=== PATIENT | male | born 1960 | race Caucasian/White ===

== ENCOUNTER 2020-01-13 12:34 | Day surgery (SDC) | payer BC, OTHER ==
[2020-01-07 13:23] LABS: PROTIME 10.1 Seconds (9.3-11.4)
[~2020-01-13] VITALS: Ht 170.2 cm; Wt 89.5 kg
--- NOTE | ~2020-01-13 | O ---
[facility] [place] [address] OPERATIVE REPORT Name: SABRINA PATTERSON Room #: 440-P [facility] M.R.#: [id number] Admission: 01/13/20 Attend Phys: Baljit Fox MD Discharge: Date of : 58 Report #: [id number] THIS REPORT FOR: cc: Chidi Saleh MD, Herbert M. MD Abraham,Baljit Rahman MD ~ CC: Chidi Fox DATE OF SERVICE: 01/13/2020 PREOPERATIVE DIAGNOSIS: Left knee valgus osteoarthritis. POSTOPERATIVE DIAGNOSIS: Left knee valgus osteoarthritis. PROCEDURE: Left total knee arthroplasty using Navio robotic assistance. SURGEON: Baljit Fox MD VICTIMS ADVOCATE CLERK/SPECIALIST: Gaby Marie PA-C INDICATIONS FOR VICTIMS ADVOCATE CLERK/SPECIALIST: Throughout the case, extensive retraction and manipulation of the knee was required. This was afforded to me by my programs assistant. ANESTHESIA: LMA with an adductor canal block. IMPLANTS: Amezcua and Nephew size 6 Journey II BCS Oxinium femur, size 5 tibia, size 11 constrained polyethylene and size 35 patella. TOURNIQUET TIME: 66 minutes. ESTIMATED BLOOD LOSS: 25 mL. COMPLICATIONS: None. SPECIMENS: None. CONDITION UPON LEAVING THE OPERATING ROOM: Stable. INDICATIONS FOR PROCEDURE: The patient is a 59-year-old gentleman with severe left knee valgus osteoarthritis. He failed conservative measures for this and after discussion with him, he elected for left total knee arthroplasty. DESCRIPTION OF PROCEDURE: Risks, benefits, alternatives and complications were discussed in detail with the patient including but not limited to risk of anesthesia, risk of damage to nerves, arteries, blood vessels, risk for [facility] [address] [place] [address] OPERATIVE REPORT Name: SABRINA PATTERSON Room #: 440-P [facility] M.R.#: [id number] Admission: 01/13/20 Attend Phys: Baljit Fox MD Discharge: Date of : 58 Report #: [id number] infection, bleeding, risk for continued knee pain, need for reoperation. Informed consent was obtained from the patient. Left knee was appropriately marked in the preoperative holding area. IV Ancef was given for preoperative antibiotics. Adductor canal block was placed by anesthesia. He was brought to the operating room and placed in supine position on operating room table. LMA anesthesia was induced without complication. Tourniquet was placed on the left thigh. Left lower extremity was prepped and draped in normal sterile fashion. Timeout was performed properly identifying the patient and procedure as well as the instrumentation. All in the operating room were in agreement. Left lower extremity was exsanguinated, tourniquet was inflated. Tourniquet time was 66 minutes. Standard midline approach to the knee was made with 10 blade through the skin. Dissection was taken down sharply to the fascia and deep flaps were developed medially and laterally. Fresh 10 blade was used to make a medial parapatellar arthrotomy and the knee was inspected. There was severe lateral compartment osteoarthritis with complete loss of articular cartilage on the lateral femoral condyle and tibial plateau. In addition, there was moderate patellofemoral involvement. It was decided to proceed with total knee arthroplasty. ACL and PCL were removed sharply. Reference pins were placed in the femur and the tibia and the knee was then digitally mapped using the [employer] robotic system. Intraoperative plan was made and we sized the size 6 femur and a size 5 tibia with a size 10 spacer. After acceptance of the intraoperative plan, the distal femoral cut was made with a Navio bur. Distal femoral cutting block was pinned in place and the chamfer cuts were made. Attention was then turned to the tibia. Remainder of the menisci removed with Bovie cautery. Tibial resection guide was pinned in place using the Navio for placement and tibial resection was made. After this, flexion and extension gaps were checked and found to have good balance in flexion and extension medially. There was slight laxity laterally and it was felt we could make up for this with a constrained implant. After this, the tibia was sized, found to be a size 5. A size 5 tibial trial was placed, pinned and punched. A size 6 femoral trial was placed and the box cut was made. This was then trialed with a size 10 and then a size 11 polyethylene. The knee was taken through range of motion and found to have the best fit with the 11 polyethylene with a millimeter laxity medially 3 mm laterally and it was felt we could make up for this with a constrained polyethylene. A 9 mm was resected from the posterior surface of the patella and a size 35 patellar trial button was placed. Knee was taken through range of motion, found to be stable, found to have good patellar tracking. Trial components were removed. Bony ends were thoroughly irrigated with normal saline. Final size 5 tibia, size 6 Journey II BCS Oxinium femur and a size 35 patella were cemented in place using standard cementation techniques. While the cement cured, a periarticular injection consisting of morphine, ropivacaine, epinephrine and Toradol was placed around the knee joint capsule. After the cement cured, the tourniquet was deflated. Hemostasis was obtained with Bovie cautery. Final size 11 constrained polyethylene was placed. A gram of vancomycin was placed deep in the joint. Fascia was closed with 0 Vicryl, skin was closed with 2-0 Vicryl, 3-0 Monocryl. Dermabond and a CLAIRE dressing was [facility] [address] [place] [address] OPERATIVE REPORT Name: SABRINA PATTERSON Room #: 440-P [facility] M.R.#: [id number] Admission: 01/13/20 Attend Phys: Baljit Fox MD Discharge: Date of : 58 Report #: [id number] applied. The patient tolerated this procedure well and went to the recovery room under care of anesthesia postoperatively. By: [id number] Baljit Fox MD /nt
[~2020-01-13 12:34] MED LIST: ADULT LOW DOSE81 MG PO; ALEVE220 M1 PO; CENTRUM SILVER1 EAC5 PO; LIPITOR80 MG PO; LISINOPRIL-HCT1 EAC1 PO; OMEPRAZOLE40 MG PO; SERTRALINE HCL100 MG PO; TENORMIN50 MG PO; XANAX 0.5 MG0.5 M1 PO; ZETIA10 MG PO
[2020-01-13 13:29] VITALS: BP 152/85
[2020-01-13 17:22] VITALS: BP 124/88
[2020-01-13 19:41] VITALS: BP 124/79
--- NOTE | 2020-01-13 19:51 | NUR ---
PATIENT ARRIVED AT 1722 ALERT XS 4 AT BEDSIDE. HEIGHT= 5'7" WEIGHT = 190 V.S 97.7 20 61 124/88 O2 SAT 97% RA. FLUIDS INFUSING ORDERED. PT REGULAR DIET. HAS PICCO DRESSING TO LEFT KNEE. HAS SCD'S. AND JESUS MANUEL ARNDT. PT GIVEN PRN PAIN MEDS. PT PLEASANT AND COOPERATIVE WITH CARE.
--- NOTE | 2020-01-13 19:58 | NUR ---
PT ARRIVED AT 1141 ACCOMPAINED BY . HEIGHT 5'11" WEIGHT = 250 LBS. V.S. 97.4 20 110 117/72 O2 SAT 95% 2L/NC. PT GIVEN PRN PAIN MEDS IV FLUIDS INFUSING ORDERED. PT GIVE REGULAR DIET. HAS SCD'S, AND 4 BANDAIDS OVER 4 LAPROSCOPIC SITES. PT AMBULATING THE HALLS AROUND THE UNIT. STEADY GAIT. CONT OF B&B.
--- NOTE | 2020-01-14 03:48 | NUR ---
POST OP L KNEE. CLAIRE DRSG INTACT, POLAR EKATERINA IN PLACE. PT BEEN UP TO THE BATHROOM USING ROLLER WALKER.VOIDING OKAY. PAIN MANAGED BY ORAL PAIN MEDS. VSS.IVF AND IV ABTS GIVEN. PROGRESSING TOWARDS CARE GOALS.
[2020-01-14 04:14] VITALS: BP 99/59
[2020-01-14 06:01] LABS: HEMATOCRIT 33.4 % (42.0-52.0); HEMOGLOBIN 11.2 gm/dL (14.0-18.0); MCH 30.8 pg (26.0-34.0); MCHC 33.6 g/dL (28.0-37.0); MCV 91.7 fL (80.0-100.0); RBC 3.65 mil/uL (4.50-6.00); RDW 13.1 % (10.5-14.5); WBC 7.8 thou/uL (4.0-11.0)
[2020-01-14 07:46] VITALS: BP 97/63
[2020-01-14 13:44] VITALS: BP 97/63
--- NOTE | 2020-01-14 14:04 | NUR ---
PT ADMITTED RELATED TO LEFT TKR. CM REVIEWED CHART AND SPOKE WITH CARE TEAM. CM MET WITH PT AT BEDSIDE THIS DAY. PT IS A&O X4. CM ROLE INTRODUCED. PT INDICATED HE LIVES IN A HOUSE WITH HIS SPOUSE WITH 3 STEPS TO ENTER AND 10-15 STEPS INSIDE. PT INDICATED HE HAD BEEN INDEPENDENT WITH GAIT AND ADLS HUMAN RESOURCES TECHNICIAN. PT INDICATED HE NEEDS A FWW FOR HOME USE. IT'S TO BE DELIVERED BY [facility]. PT INDICATED HE HAS FOLLOW UP APPOINTMENT WITH [facility] NEXT WED BUT WASN'T SURE ABOUT HH OR OP PT UPON DC. CM TO FOLLOW INDICATED WITH DC PLANNING.
--- NOTE | 2020-01-14 19:56 | NUR ---
DC ORDERS RECEIVED. IV REMOVED FROML HAND. DC INSTRUCTIONS REVEIEWED WITH PT, ALREADY HAD SCRIPTS PRIOR. VOLUNTEER ESCORTED PT BY WC TO MAIN ENTRANCE.
== END 2020-01-14 16:36 | disposition home or self-care (01) ==
LOC: OR 12:34 → 4S 17:30 → OR 23:14 → ENTRNSPT 01-14 15:40 → EDTRNSPTSTS 01-14 15:43 → OR 01-14 16:36
PROVIDERS: Orthopaedic Surgery
DX: M17.12 Unilateral primary osteoarthritis, left knee (principal); M25.562 Pain in left knee; I10 Essential (primary) hypertension; F41.9 Anxiety disorder, unspecified; E78.5 Hyperlipidemia, unspecified; K21.9 Gastro-esophageal reflux disease without esophagitis; Z87.19 Personal history of other diseases of the digestive system; Z98.890 Other specified postprocedural states; Z79.899 Other long term (current) drug therapy; Z79.82 Long term (current) use of aspirin
CPT/HCPCS: 10102; 50010; 50101; 50415; 50954; 51130; 51225; 51320; 52001; 52282; 53000; 53078; 54118; 56527; 56528; 57095; 57103; 57110; 57127; 57180; 64042; 70005

== ENCOUNTER → 2020-09-14 | Outpatient (CLI) | payer BC, OTHER ==
[~2020-09-14] MED LIST changes: +NORVASC5 MG PO
== END ==
LOC: LAB 14:08
PROVIDERS: ATTEND Orthopaedic Surgery
DX: Z01.812 Encounter for preprocedural laboratory examination (principal); Z20.828 Contact with and (suspected) exposure to other viral communicable diseases

== ENCOUNTER 2020-09-19 07:34 | Inpatient (IN) | payer BC, OTHER ==
[2020-09-14 09:25] LABS: URINE BILIRUBIN NEGATIVE (Negative); URINE BLOOD NEGATIVE (Negative); URINE CLARITY CLEAR; URINE COLOR YELLOW; URINE GLUCOSE-RANDOM* NEGATIVE (Negative); URINE KETONES NEGATIVE (Negative); URINE LEUKOCYTES-REFLEX NEGATIVE (Negative); URINE NITRITE-REFLEX NEGATIVE (Negative); URINE PROTEIN (DIPSTICK) NEGATIVE (Negative); URINE SPECIFIC GRAVITY >= 1.030 (1.005-1.035); URINE UROBILINOGEN 0.2 E.U./dl (0.2-1.0)
[2020-09-14 09:28] LABS: HEMATOCRIT 39.8 % (42.0-52.0); HEMOGLOBIN 13.1 gm/dL (14.0-18.0); MCH 30.6 pg (26.0-34.0); MCHC 32.9 g/dL (28.0-37.0); MCV 92.8 fL (80.0-100.0); RBC 4.29 mil/uL (4.50-6.00); RDW 13.3 % (10.5-14.5); WBC 4.1 thou/uL (4.0-11.0)
[2020-09-14 09:38] LABS: ALBUMIN 4.1 g/dL (3.4-5.0); CALCIUM 8.8 mg/dL (8.5-10.1); POTASSIUM 4.2 mmol/L (3.5-5.1)
[~2020-09-19] VITALS: Ht 170.2 cm; Wt 88.9 kg
--- NOTE | ~2020-09-19 | O ---
[facility] [place] [address] [address] OPERATIVE REPORT Name: SABRINA PATTERSON Room #: 439-P [facility] M.R.#: [id number] Admission: 09/19/20 Attend Phys: Baljit Fox MD Discharge: 09/19/20 Date of : 58 Report #: [id number] THIS REPORT FOR: cc: Chidi Saleh MD, Herbert M. MD Abraham,Baljit Rahman MD ~ CC: Chidi Fox DATE OF SERVICE: 09/19/2020 PREOPERATIVE DIAGNOSIS: Right knee osteoarthritis. POSTOPERATIVE DIAGNOSIS: Right knee osteoarthritis. PROCEDURE: Right total knee arthroplasty using Navio robotic assistance. SURGEON: Baljit Fox MD NETWORK ANNOUNCER: Gaby Marie PA-C INDICATIONS FOR NETWORK ANNOUNCER: Throughout the case, extensive retraction and manipulation of the knee was required. This was afforded to me by my assistant professor of biology. ANESTHESIA: LMA with an adductor canal block. IMPLANTS: Amezcua and Nephew size 6 Journey II BCS Oxinium femur, size 5 tibia, size 9 polyethylene and size 35 patella. TOURNIQUET TIME: 52 minutes. ESTIMATED BLOOD LOSS: 25 mL. COMPLICATIONS: None. SPECIMENS: None. CONDITION UPON LEAVING THE OPERATING ROOM: Stable. INDICATIONS FOR PROCEDURE: The patient is a 60-year-old gentleman who has right knee osteoarthritis, who failed conservative measures for this and after discussion with him, he elected for right total knee arthroplasty. DESCRIPTION OF PROCEDURE: Risks, benefits, alternatives, and complications were discussed in detail with the patient including but not limited to risk of anesthesia, risk of damage to nerves, arteries, blood vessels, risk for [facility] [address] [place] [address] OPERATIVE REPORT Name: SABRINA PATTERSON Room #: 439-P [facility] M.R.#: [id number] Admission: 09/19/20 Attend Phys: Baljit Fox MD Discharge: 09/19/20 Date of : 58 Report #: [id number] infection, bleeding, risk for continued knee pain, need for reoperation. Informed consent was obtained from the patient. Right knee was appropriately marked in the preoperative holding area. IV Ancef was given for preoperative antibiotics. He was brought to the operating room and placed in supine position on the operating room table. LMA anesthesia was induced without complication. Tourniquet was placed on the right thigh. Right lower extremity was prepped and draped in normal sterile fashion. Timeout was performed properly identifying the patient and procedure as well as the implants. All in the operating room were in agreement. Right lower extremity was exsanguinated, tourniquet was inflated. Tourniquet time was 52 minutes. Standard midline approach to the knee was made with 10 blade through the skin. Dissection was taken down sharply to the fascia and deep flaps were developed medially and laterally. Fresh 10 blade was used to make a medial parapatellar arthrotomy and the knee was inspected. There was severe tricompartmental osteoarthritis. ACL and PCL were removed sharply. Reference pins were placed in the femur and the tibia. The knee was then digitally mapped using the [employer] robotic system. Intraoperative plan was made and we sized the size 6 femur with a size 5 tibia and a 10 spacer. After acceptance of the plan, the distal femoral cut was made with a Navio bur. Distal femoral cutting block was pinned in place and chamfer cuts were made. Attention was turned to the tibia. Tibial resection guide was pinned in place using the Navio for placement and tibial resection was made. Flexion and extension gaps were then checked and found to have good balance in flexion and extension. Tibia was then sized, found to be a size 5. A size 5 tibial trial was placed, pinned and punched. Size 6 femoral trial was placed and the box cut was made. This was then trialed with a size 9 polyethylene. Size 9 polyethylene demonstrated 1 mm laxity medially and laterally throughout range of motion of the knee. A 9 mm was resected from the posterior surface of the patella and a size 35 patellar trial button was placed. Knee was taken through range of motion, found to be stable, found to have good patellar tracking. Trial components were removed. Bone ends were thoroughly irrigated with normal saline. A final size 5 tibia, size 6 Journey II BCS Oxinium femur and a size 35 patella were cemented in place using standard cementation techniques. While the cement cured, a periarticular injection consisting of morphine, ropivacaine, epinephrine, Toradol was placed around the knee joint capsule. After the cement cured, tourniquet was deflated. Hemostasis was obtained with Bovie cautery. A final size 9 polyethylene was placed. A gram of vancomycin was placed deep in the joint. Fascia was closed with 0 Vicryl, skin was closed with 2-0 Vicryl, Monocryl, Dermabond and a CLAIRE dressing was applied. The patient tolerated this procedure well and went to recovery room under care of anesthesia postoperatively. By: [id number] Baljit Fox MD /hoang
[2020-09-19 08:15] VITALS: BP 163/95
--- NOTE | 2020-09-19 14:45 | NUR ---
PATIENT ADMITTED FROM OR WITH RIGHT KNEE REPLACEMENT, CLAIRE DRESSING IN PLACE, KNEE HIGH JESUS MANUEL ARNDT, SCD'S, [facility]. PATIENT C/O PAIN 6/10, HYDROCODONE 1 TABLET GIVEN DURING ADMISSION. NIKOLE/PT WORKED WITH THE PATIENT, STATES OK TO DISCHARGE TO HOME TODAY. VSS, REPORT GIVEN TO KARTHIK/TAMIKA. RIGHT HAND IV IN PLACE. AT BEDSIDE. O2 AT 2 LITERS/NC. PATIENT WILL DISCONTINUE TO HOME TODAY. WALKED PATIENT TO THE BATHROOM, NO PROBLEMS WITH URINATING.
--- NOTE | 2020-09-19 15:10 | NUR ---
ASSESSMENT: CM REVIEWED CHART AND SPOKE WITH PT. PT IS ALERT AND ORIENTED X4. PT IS S/P R TKA. PT REPORTS LIVING IN A HOUSE WITH HIS . PT REPORTS ABOUT 3 STEPS TO ENTER THE HOME AND 10-15 STEPS WITH HANDRAILS TO THE UPPER LEVEL. PT REPORTS HAVING A WALKER AT HOME FROM HIS PAST SURGERY. PT REPORTS HE PLANS ON DOING OUTPATIENT THERAPY AT [facility] IN [place], [place]. CM DISCUSSED ROLE. PT DOES NOT ANTICIPATE HAVING ANY NEEDS FROM CM. PT IS TO WORK WITH THERAPY AND CM WILL CONTINUE TO FOLLOW TO ASSIST NEEDED.
[2020-09-19 16:14] VITALS: BP 163/95
[2020-09-19 16:46] VITALS: BP 128/715
[2020-09-19] MEDS ORDERED: COLACE100 MG PO (16:49)
[2020-09-19] MEDS ORDERED: ADULT LOW DOSE81 MG PO (16:51)
== END 2020-09-19 19:03 | disposition home or self-care (01) | DRG 470 ==
LOC: TBA 07:34 → ADMC 08:22 → 4S 13:11 → ADMC 14:18 → 4S 19:03
PROVIDERS: ADMIT Orthopaedic Surgery; ATTEND Orthopaedic Surgery
PROC: 8E0Y0CZ Robotic Assisted Procedure of Lower Extremity, Open Approach (ICD-10-PCS; principal; 2020-09-19)
PROC: 0SRC0J9 Replacement of Right Knee Joint with Synthetic Substitute, Cemented, Open Approach (ICD-10-PCS; principal; 2020-09-19)
DX: M17.11 Unilateral primary osteoarthritis, right knee (principal); I10 Essential (primary) hypertension; E78.5 Hyperlipidemia, unspecified; K22.70 Barrett's esophagus without dysplasia; F41.9 Anxiety disorder, unspecified; F32.9 Major depressive disorder, single episode, unspecified; M19.90 Unspecified osteoarthritis, unspecified site; Z96.652 Presence of left artificial knee joint; K21.9 Gastro-esophageal reflux disease without esophagitis; Z88.8 Allergy status to other drugs, medicaments and biological substances; Z79.899 Other long term (current) drug therapy
CPT/HCPCS: 10102; 50010; 50101; 53365; 57103; 57110; 62110; 62900; 64039; 70005